=== PATIENT | female | born 1985 | race American Indian/Alaskan Native ===

== ENCOUNTER 2017-01-26 07:34 | Inpatient (IN) | payer OTHER ==
[2017-01-26] MEDS ORDERED: Methylergonovine 0.2 MG/1 ML Amp IM PRN (08:25)
[2017-01-26] MEDS ORDERED: Misoprostol 200 MCG Tab PO PRN (08:25)
[2017-01-26] MEDS ORDERED: Sodium Chloride 0.9% 2.5 ML Syringe FLUSH PRN (08:25)
[2017-01-26] MEDS ORDERED: Sodium Chloride 0.9% 10 ML Syringe FLUSH PRN (08:25)
[2017-01-26] MEDS ORDERED: Nalbuphine 10 MG/1 ML Vial IVPUSH PRN (08:25)
[2017-01-26] MEDS ORDERED: Lidocaine 1% 50 ML MDV INJECT PRN (08:25)
[2017-01-26] MEDS ORDERED: Butorphanol 1 MG/ML SDV IVPUSH PRN (08:25)
[2017-01-26] MEDS ORDERED: Water For Irrigation,Sterile 1,000 ML Container IRR PRN (08:25)
[2017-01-26] MEDS ORDERED: Carboprost Tromethamine 250 MCG/1 ML Amp IM PRN (08:25)
[2017-01-26] MEDS ORDERED: Ampicillin 2 GM in Sodium Chloride 0.9% 100 ML IV ONE (08:30)
[2017-01-26] MEDS ORDERED: Oxytocin/0.9 % Sodium Chloride 30 UNIT/500 ML BAG IV SCH ×2 (08:30→14:45)
[2017-01-26] MEDS: Lactated Ringers 1,000 ML IV SCH ×3 (08:50→12:11)
[2017-01-26] MEDS ORDERED: Ampicillin 2 GM AdvVial IV ONE (09:00)
[2017-01-26] MEDS ORDERED: Sodium Chloride 0.9% 100 ML ONE (09:06)
[2017-01-26] MEDS ORDERED: fentaNYL 100 MCG/2 ML SDV ONE (11:25)
[2017-01-26] MEDS ORDERED: Ropivacaine HCl/PF 100 ML ONE (11:26)
[2017-01-26] MEDS: Ampicillin 1 GM in Sodium Chloride 0.9% 50 ML IV SCH ×2 (13:09→18:50)
[2017-01-26] MEDS ORDERED: Terbutaline 1 MG/ML SDV SUBCUT PRN (14:40)
[2017-01-26] MEDS ORDERED: Lanolin 100% Cream 7 GM Tube TOP PRN (17:22)
[2017-01-26] MEDS ORDERED: Acetaminophen 500 MG Tab PO PRN ×3 (17:22→18:42)
[2017-01-26] MEDS ORDERED: oxyCODONE 5 MG Tab PO PRN (17:22)
[2017-01-26] MEDS ORDERED: Ibuprofen 400 MG Tab PO PRN (17:22)
[2017-01-26] MEDS ORDERED: Benzocaine/Menthol 20%-0.5% Spray 78 GM Cannister TOP PRN (17:22)
[2017-01-26] MEDS ORDERED: Docusate Sodium 100 MG Cap PO PRN (17:22)
[2017-01-26] MEDS ORDERED: Witch Hazel Medicated Pads 40/Jar TOP PRN (17:22)
[2017-01-26] MEDS ORDERED: Bisacodyl 10 MG Supp RECTAL PRN (17:22)
[2017-01-26] MEDS: Ibuprofen 800 MG Tab PO PRN (18:08)
--- NOTE | 2017-01-26 18:41 | PCM.PREANE ---
Preanesthetic Assessment - Procedure Proposed Procedure: labor epidural - Anesthesia/Transfusion/Family Hx Anesthesia History: Prior Anesthesia Without Reaction Family History of Anesthesia Reaction: No Transfusion History: No Prior Transfusion(s) - Review of Systems General: No Symptoms Pulmonary: No Symptoms Cardiovascular: No Symptoms Gastrointestinal: No Symptoms Neurological: No Symptoms Other: Reports: None - Physical Assessment NPO Status Date: 01/26/17 Height: 5 ft 10.87 in Weight: 244 lb 3.752 oz ASA Class: 2 Mental Status: Alert & Oriented x3 Dentition: Reports: Normal Dentition ROM/Head Extension: Full Lungs: Clear to Auscultation Cardiovascular: Regular Rate - Lab Values: Laboratory Last Values WBC 11.55 K/uL (4.0-11.0) H 01/26/17 08:53 RBC 3.94 M/uL (4.30-5.90) L 01/26/17 08:53 Hgb 12.9 g/dL (12.0-16.0) 01/26/17 08:53 Hct 38.6 % (36.0-46.0) 01/26/17 08:53 MCV 98.0 fL (80.0-98.0) 01/26/17 08:53 MCH 32.7 pg (27.0-32.0) H 01/26/17 08:53 MCHC 33.4 g/dL (31.0-37.0) 01/26/17 08:53 RDW Std Deviation 48.4 fl (28.0-62.0) 01/26/17 08:53 RDW Coeff of Mary 14 % (11.0-15.0) 01/26/17 08:53 Plt Count 279 K/uL (150-400) 01/26/17 08:53 MPV 9.30 fL (7.40-12.00) 01/26/17 08:53 Nucleated RBC % 0.0 /100WBC 01/26/17 08:53 Nucleated RBCs # 0 K/uL 01/26/17 08:53 Blood Type O POSITIVE 01/26/17 08:53 Antibody Screen NEGATIVE 01/26/17 08:53 - Allergies Allergies/Adverse Reactions: Allergies Allergy/AdvReac Type Severity Reaction Status Date / Time No Known Allergies Allergy Verified 09/15/15 07:05 - Blood Blood Available: No - Anesthesia Plan Free Text/Narrative:: labor epidural - Acknowledgements Anesthesia Type Planned: Epidural Pt an Appropriate Candidate for the Planned Anesthesia: Yes Alternatives and Risks of Anesthesia Discussed w Pt/Guardian: Yes Pt/Guardian Understands and Agrees with Anesthesia Plan: Yes PreAnesthesia Questionnaire - Past Health History Medical/Surgical History: Denies Medical/Surgical History 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 [No Known Home Meds] 09/15/15 [History] - CURRENT (IN HOUSE) MEDS Current Meds: Current Medications Acetaminophen (Tylenol Extra Strength) 500 mg PO Q4H PRN PRN Reason: Pain Acetaminophen (Tylenol Extra Strength) 1,000 mg PO Q4H PRN PRN Reason: Pain Benzocaine/Menthol (Dermoplast Pain Relief 20%-0.5% [place]) 78 gm TOP ASDIRECTED PRN PRN Reason: Perineal Comfort Measure Last Admin: 01/26/17 18:09 Dose: 1 canister Bisacodyl (Dulcolax) 10 mg RECTAL .ONCE PRN PRN Reason: Constipation Docusate Sodium (Colace) 100 mg PO BID PRN PRN Reason: Constipation Emollient Ointment (Lansinoh Hpa) 0 gm TOP ASDIRECTED PRN PRN Reason: Sore Nipples Last Admin: 01/26/17 18:09 Dose: 1 tube Ibuprofen (Motrin) 400 mg PO Q4H PRN PRN Reason: Pain Ibuprofen (Motrin) 800 mg PO Q6H PRN PRN Reason: Pain Last Admin: 01/26/17 18:08 Dose: 800 mg Oxycodone HCl (Oxycodone) 5 mg PO Q2H PRN PRN Reason: Pain Witch Sonja (Tucks) 1 pad TOP ASDIRECTED PRN PRN Reason: comfort care Last Admin: 01/26/17 18:09 Dose: 1 tub Discontinued Medications Ampicillin Sodium (Ampicillin) Confirm Administered Dose 4 gm IV .STK-MED ONE Stop: 01/26/17 09:01 Butorphanol Tartrate (Stadol) 1 mg IVPUSH Q1H PRN PRN Reason: Pain Carboprost Tromethamine (Hemabate Ds) 250 mcg IM ASDIRECTED PRN PRN Reason: Post Hemorrhage Fentanyl (Sublimaze) Confirm Administered Dose [address] [facility] ONE Stop: 01/26/17 11:26 Ampicillin Sodium 2 gm/ Sodium (Chloride) 100 mls @ 200 mls/hr IV ONETIME ONE Stop: 01/26/17 08:59 Last Admin: 01/26/17 09:11 Dose: 200 mls/hr Lactated Ringer's (Ringers, Lactated) 1,000 mls @ 150 mls/hr IV ASDIRECTED BARBI Last Admin: 01/26/17 12:11 Dose: 150 mls/hr Oxytocin/Sodium Chloride (Oxytocin 30 Unit/500 Ml-Ns) 30 unit in 500 mls @ 500 mls/hr IV TITRATE BARBI Sodium Chloride (Normal Saline) Confirm Administered Dose 100 mls @ as directed .ROUTE .[facility] ONE Stop: 01/26/17 09:07 Ampicillin Sodium 1 gm/ Sodium (Chloride) 50 mls @ 100 mls/hr IV Q4H BARBI Last Admin: 01/26/17 13:09 Dose: 100 mls/hr Ropivacaine (Naropin 0.2%) Confirm Administered Dose 100 mls @ as directed .ROUTE .[facility] ONE Stop: 01/26/17 11:27 Oxytocin/Sodium Chloride (Oxytocin 30 Unit/500 Ml-Ns) 30 unit in 500 mls @ 2 mls/hr IV TITRATE BARBI; 2 MUNITS/MIN PRN Reason: Protocol Last Titration: 01/26/17 17:04 Dose: 500 munits/min, 500 mls/hr Lidocaine HCl (Xylocaine 1%) 50 ml INJECT .ONCE PRN PRN Reason: Laceration repair Methylergonovine Maleate (Methergine) 0.2 mg IM ASDIRECTED PRN PRN Reason: Post Hemorrhage Misoprostol (Cytotec) 200 mcg PO .ONCE PRN PRN Reason: Post Hemorrhage Nalbuphine HCl (Nubain) 10 mg IVPUSH Q1H PRN PRN Reason: Pain (severe 7-10) Sodium Chloride (Saline Flush) 10 ml FLUSH ASDIRECTED PRN PRN Reason: Keep Vein Open Sodium Chloride (Saline Flush) 2.5 ml FLUSH ASDIRECTED PRN PRN Reason: Keep Vein Open Sterile Water (Sterile Water For Irrigation) 1,000 ml IRR ASDIRECTED PRN PRN Reason: delivery Terbutaline Sulfate (Brethine) 0.25 mg SUBCUT ASDIRECTED PRN PRN Reason: Tacysystole
--- NOTE | 2017-01-26 18:47 | PCM.SN ---
- Free Text/Narrative Note: Patient consents to labor epidural, risks and benefits explained, patient sitting, sterile technique, chlorhexidine prep L3-L4, 1% lidocaine skin wheal, 17 gauge Tuohy needle inserted to 10 cm with saline/loss of resistance technique , epidural catheter inserted to 14 cm at skin, needle discontinued, test dose given, no HR change, epidural bolus of 5 ml given, epidural drip started at 10 ml/hr, patient tolerated well, states pain is less.
--- NOTE | 2017-01-27 06:49 | PCM.PNPP ---
<Zacarias Chacon - Last Filed: 01/27/17 07:04> - General Info Date of Service: 01/27/17 Functional Status: Reports: Pain Controlled, Tolerating Diet, Ambulating, Urinating - Review of Systems General: Denies: Fever, Weakness HEENT: Denies: Headaches, Visual Changes Pulmonary: Denies: Shortness of Breath, Pleuritic Chest Pain, Cough Cardiovascular: Denies: Chest Pain, Palpitations Gastrointestinal: Reports: Flatus. Denies: Constipation, Nausea, Vomiting Genitourinary: Denies: Dysuria Neurological: Denies: Confusion, Dizziness, Headache Psychiatric: Denies: Confusion, Depression - Patient Data Vital Signs - Most Recent: Last Vital Signs Temp 98.9 F 01/26/17 20:00 Pulse 79 01/26/17 20:00 Resp 20 01/26/17 20:00 BP 112/66 01/26/17 20:00 Pulse Ox 97 01/26/17 20:00 Weight - Most Recent: 244 lb 3.752 oz Lab Results - Last 24 Hours: Laboratory Results - last 24 hr 01/26/17 01/26/17 01/27/17 Range/Units 08:53 08:53 04:57 WBC 11.55 H (4.0-11.0) K/uL RBC 3.94 L (4.30-5.90) M/uL Hgb 12.9 10.6 L (12.0-16.0) g/dL Hct 38.6 31.7 L (36.0-46.0) % MCV 98.0 (80.0-98.0) fL MCH 32.7 H (27.0-32.0) pg MCHC 33.4 (31.0-37.0) g/dL RDW Std Deviation 48.4 (28.0-62.0) fl RDW Coeff of Mary 14 (11.0-15.0) % Plt Count 279 (150-400) K/uL MPV 9.30 (7.40-12.00) fL Nucleated RBC % 0.0 /100WBC Nucleated RBCs # 0 K/uL Blood Type O POSITIVE Antibody Screen NEGATIVE Med Orders - Current: Current Medications Acetaminophen (Tylenol Extra Strength) 500 mg PO Q4H PRN PRN Reason: Pain Acetaminophen (Tylenol Extra Strength) 1,000 mg PO Q4H PRN PRN Reason: Pain Benzocaine/Menthol (Dermoplast Pain Relief 20%-0.5% [place]) 78 gm TOP ASDIRECTED PRN PRN Reason: Perineal Comfort Measure Last Admin: 01/26/17 18:09 Dose: 1 canister Bisacodyl (Dulcolax) 10 mg RECTAL .ONCE PRN PRN Reason: Constipation Docusate Sodium (Colace) 100 mg PO BID PRN PRN Reason: Constipation Emollient Ointment (Lansinoh Hpa) 0 gm TOP ASDIRECTED PRN PRN Reason: Sore Nipples Last Admin: 01/26/17 18:09 Dose: 1 tube Ibuprofen (Motrin) 400 mg PO Q4H PRN PRN Reason: Pain Ibuprofen (Motrin) 800 mg PO Q6H PRN PRN Reason: Pain Last Admin: 01/26/17 18:08 Dose: 800 mg Oxycodone HCl (Oxycodone) 5 mg PO Q2H PRN PRN Reason: Pain Witch Sonja (Tucks) 1 pad TOP ASDIRECTED PRN PRN Reason: comfort care Last Admin: 01/26/17 18:09 Dose: 1 tub Discontinued Medications Ampicillin Sodium (Ampicillin) Confirm Administered Dose 4 gm IV .STK-MED ONE Stop: 01/26/17 09:01 Butorphanol Tartrate (Stadol) 1 mg IVPUSH Q1H PRN PRN Reason: Pain Carboprost Tromethamine (Hemabate Ds) 250 mcg IM ASDIRECTED PRN PRN Reason: Post Hemorrhage Fentanyl (Sublimaze) Confirm Administered Dose 200 mcg .ROUTE .STK-MED ONE Stop: 01/26/17 11:26 Last Admin: 01/26/17 18:49 Dose: Not Given Ampicillin Sodium 2 gm/ Sodium (Chloride) 100 mls @ 200 mls/hr IV ONETIME ONE Stop: 01/26/17 08:59 Last Admin: 01/26/17 09:11 Dose: 200 mls/hr Lactated Ringer's (Ringers, Lactated) 1,000 mls @ 150 mls/hr IV ASDIRECTED BARBI Last Admin: 01/26/17 12:11 Dose: 150 mls/hr Oxytocin/Sodium Chloride (Oxytocin 30 Unit/500 Ml-Ns) 30 unit in 500 mls @ 500 mls/hr IV TITRATE BARBI Sodium Chloride (Normal Saline) Confirm Administered Dose 100 mls @ as directed .ROUTE .STK-MED ONE Stop: 01/26/17 09:07 Last Admin: 01/26/17 18:49 Dose: Not Given Ampicillin Sodium 1 gm/ Sodium (Chloride) 50 mls @ 100 mls/hr IV Q4H BARBI Last Admin: 01/26/17 18:50 Dose: Not Given Ropivacaine (Naropin 0.2%) Confirm Administered Dose 100 mls @ as directed .ROUTE .STK-MED ONE Stop: 01/26/17 11:27 Last Admin: 01/26/17 18:49 Dose: Not Given Oxytocin/Sodium Chloride (Oxytocin 30 Unit/500 Ml-Ns) 30 unit in 500 mls @ 2 mls/hr IV TITRATE BARBI; 2 MUNITS/MIN PRN Reason: Protocol Last Titration: 01/26/17 17:04 Dose: 500 munits/min, 500 mls/hr Lidocaine HCl (Xylocaine 1%) 50 ml INJECT .ONCE PRN PRN Reason: Laceration repair Methylergonovine Maleate (Methergine) 0.2 mg IM ASDIRECTED PRN PRN Reason: Post Hemorrhage Misoprostol (Cytotec) 200 mcg PO .ONCE PRN PRN Reason: Post Hemorrhage Nalbuphine HCl (Nubain) 10 mg IVPUSH Q1H PRN PRN Reason: Pain (severe 7-10) Sodium Chloride (Saline Flush) 10 ml FLUSH ASDIRECTED PRN PRN Reason: Keep Vein Open Sodium Chloride (Saline Flush) 2.5 ml FLUSH ASDIRECTED PRN PRN Reason: Keep Vein Open Sterile Water (Sterile Water For Irrigation) 1,000 ml IRR ASDIRECTED PRN PRN Reason: delivery Terbutaline Sulfate (Brethine) 0.25 mg SUBCUT ASDIRECTED PRN PRN Reason: Tacysystole - Infant Interaction Infant Disposition, : in Room with Family Infant Interaction: Holding Infant Infant Feeding: Breastfed ; Nursed Well Support Person: - Recovery Exam Fundal Tone: Firm Fundal Level: At Umbilicus Fundal Placement: Midline Lochia Amount: Small Lochia Color: Rubra/Red Episiotomy/Laceration: Approximated Bladder Status: Nonpalpable - Exam General: Alert, Oriented HEENT: Mucous Membr. Moist/[place] Neck: Trachea Midline Lungs: Clear to Auscultation, Normal Respiratory Effort Cardiovascular: Regular Rate, Regular Rhythm GI/Abdominal Exam: Normal Bowel Sounds, Soft Extremities: Normal Inspection, Normal Range of Motion, No Pedal Edema Skin: Warm, Dry, Intact Neurological: No New Focal Deficit Psy/Mental Status: Alert, Normal Affect, Normal Mood - Problem List & Annotations (1) Vaginal delivery SNOMED Code(s): 358454497 Code(s): O80 - ENCOUNTER FOR FULL-TERM UNCOMPLICATED DELIVERY Status: Acute Current Visit: Yes - Problem List Review Problem List Initiated/Reviewed/Updated: Yes - Assessment Assessment:: PPD #1 [id number] who is GBS pos, Rubella immune, and O pos type. Minimal pain and lochia. is going well. - Plan Plan:: Patient wishes to be discharged. Discharge instructions reviewed. Continue while breast feeding. Can use OTC ibuprofen/Tylenol as needed for pain. Instructed patient to call if she develops fever greater than 101 or bleeding through a large pad an hour. Educated on common emotional changes and when to let us know if symptoms seem to worsen. Counseled on conception and that they can become even while breast feeding and not having a period. F/U with [facility] in 6wk. <Jenae Kc - Last Filed: 01/27/17 13:10> - Patient Data Vital Signs - Most Recent: Last Vital Signs Temp 36.8 C 01/27/17 08:00 Pulse 82 01/27/17 08:00 Resp 16 01/27/17 08:00 BP 119/61 01/27/17 08:00 Pulse Ox 98 01/27/17 08:00 Lab Results - Last 24 Hours: Laboratory Results - last 24 hr 01/27/17 Range/Units 04:57 Hgb 10.6 L (12.0-16.0) g/dL Hct 31.7 L (36.0-46.0) % Med Orders - Current: Current Medications Acetaminophen (Tylenol Extra Strength) 500 mg PO Q4H PRN PRN Reason: Pain Acetaminophen (Tylenol Extra Strength) 1,000 mg PO Q4H PRN PRN Reason: Pain Benzocaine/Menthol (Dermoplast Pain Relief 20%-0.5% [place]) 78 gm TOP ASDIRECTED PRN PRN Reason: Perineal Comfort Measure Last Admin: 01/26/17 18:09 Dose: 1 canister Bisacodyl (Dulcolax) 10 mg RECTAL .ONCE PRN PRN Reason: Constipation Docusate Sodium (Colace) 100 mg PO BID PRN PRN Reason: Constipation Emollient Ointment (Lansinoh Hpa) 0 gm TOP ASDIRECTED PRN PRN Reason: Sore Nipples Last Admin: 01/26/17 18:09 Dose: 1 tube Ibuprofen (Motrin) 400 mg PO Q4H PRN PRN Reason: Pain Ibuprofen (Motrin) 800 mg PO Q6H PRN PRN Reason: Pain Last Admin: 01/26/17 18:08 Dose: 800 mg Oxycodone HCl (Oxycodone) 5 mg PO Q2H PRN PRN Reason: Pain Witch Sonja (Tucks) 1 pad TOP ASDIRECTED PRN PRN Reason: comfort care Last Admin: 01/26/17 18:09 Dose: 1 tub Discontinued Medications Ampicillin Sodium (Ampicillin) Confirm Administered Dose 4 gm IV .STK-MED ONE Stop: 01/26/17 09:01 Butorphanol Tartrate (Stadol) 1 mg IVPUSH Q1H PRN PRN Reason: Pain Carboprost Tromethamine (Hemabate Ds) 250 mcg IM ASDIRECTED PRN PRN Reason: Post Hemorrhage Fentanyl (Sublimaze) Confirm Administered Dose 200 mcg .ROUTE .STK-MED ONE Stop: 01/26/17 11:26 Last Admin: 01/26/17 18:49 Dose: Not Given Ampicillin Sodium 2 gm/ Sodium (Chloride) 100 mls @ 200 mls/hr IV ONETIME ONE Stop: 01/26/17 08:59 Last Admin: 01/26/17 09:11 Dose: 200 mls/hr Lactated Ringer's (Ringers, Lactated) 1,000 mls @ 150 mls/hr IV ASDIRECTED BARBI Last Admin: 01/26/17 12:11 Dose: 150 mls/hr Oxytocin/Sodium Chloride (Oxytocin 30 Unit/500 Ml-Ns) 30 unit in 500 mls @ 500 mls/hr IV TITRATE BARBI Sodium Chloride (Normal Saline) Confirm Administered Dose 100 mls @ as directed .ROUTE .STK-MED ONE Stop: 01/26/17 09:07 Last Admin: 01/26/17 18:49 Dose: Not Given Ampicillin Sodium 1 gm/ Sodium (Chloride) 50 mls @ 100 mls/hr IV Q4H BARBI Last Admin: 01/26/17 18:50 Dose: Not Given Ropivacaine (Naropin 0.2%) Confirm Administered Dose 100 mls @ as directed .ROUTE .STK-MED ONE Stop: 01/26/17 11:27 Last Admin: 01/26/17 18:49 Dose: Not Given Oxytocin/Sodium Chloride (Oxytocin 30 Unit/500 Ml-Ns) 30 unit in 500 mls @ 2 mls/hr IV TITRATE BARBI; 2 MUNITS/MIN PRN Reason: Protocol Last Titration: 01/26/17 17:04 Dose: 500 munits/min, 500 mls/hr Lidocaine HCl (Xylocaine 1%) 50 ml INJECT .ONCE PRN PRN Reason: Laceration repair Methylergonovine Maleate (Methergine) 0.2 mg IM ASDIRECTED PRN PRN Reason: Post Hemorrhage Misoprostol (Cytotec) 200 mcg PO .ONCE PRN PRN Reason: Post Hemorrhage Nalbuphine HCl (Nubain) 10 mg IVPUSH Q1H PRN PRN Reason: Pain (severe 7-10) Sodium Chloride (Saline Flush) 10 ml FLUSH ASDIRECTED PRN PRN Reason: Keep Vein Open Sodium Chloride (Saline Flush) 2.5 ml FLUSH ASDIRECTED PRN PRN Reason: Keep Vein Open Sterile Water (Sterile Water For Irrigation) 1,000 ml IRR ASDIRECTED PRN PRN Reason: delivery Terbutaline Sulfate (Brethine) 0.25 mg SUBCUT ASDIRECTED PRN PRN Reason: Tacysystole - Infant Interaction Support Person: , Significant Other - My Orders Last 24 Hours: My Active Orders 01/26/17 14:40 Bedrest Bathroom Privileges [RC] ASDIRECTED Communication Order [RC] ASDIRECTED Communication Order [RC] ASDIRECTED Oxygen Therapy [RC] ASDIRECTED Vaginal Exam [RC] PRN Vital Signs [RC] PER UNIT ROUTINE 01/26/17 17:22 Patient Status [ADT] Routine May Shower [RC] ASDIRECTED Up ad Marlene [RC] ASDIRECTED Vital Signs [RC] PER UNIT ROUTINE Acetaminophen [Tylenol Extra Strength] 1,000 mg PO Q4H PRN Acetaminophen [Tylenol Extra Strength] 500 mg PO Q4H PRN Benzocaine/Menthol [Dermoplast Pain Relief 20%-0.5% [place]] 78 gm TOP ASDIRECTED PRN Bisacodyl [Dulcolax] 10 mg RECTAL .ONCE PRN Docusate Sodium [Colace] 100 mg PO BID PRN Ibuprofen [Motrin] 400 mg PO Q4H PRN Ibuprofen [Motrin] 800 mg PO Q6H PRN Lanolin [Lansinoh HPA] See Dose Instructions TOP ASDIRECTED PRN Witch Sonja [Tucks] 1 pad TOP ASDIRECTED PRN oxyCODONE 5 mg PO Q2H PRN Assess Lochia [WOMSER] Per Unit Routine Assess Uterine Involution [WOMSER] Per Unit Routine Breast Pump [WOMSER] Per Unit Routine Peripheral IV Discontinue [OM.PC] Routine Resuscitation Status Routine 01/26/17 17:23 Perineal Care [OM.PC] Per Unit Routine 01/27/17 Breakfast Regular Diet [DIET] - Assessment Assessment:: I reviewed patient independently. She had a at 40.6 weks, stable and afebrile. She is clinically stable for discharge - Plan Plan:: Discharge instructions reviewed
--- NOTE | 2017-01-27 11:34 | OR ---
SURGEON: Jenae Kc MD DATE OF PROCEDURE: 01/26/2017 DELIVERY NOTE COLOR MAKER: Zacarias Chacon MS-IV. PREOPERATIVE DIAGNOSES: 1. Term at 40 weeks and 6 days. 2. Spontaneous labor. 3. Group B Streptococcus positive. POSTOPERATIVE DIAGNOSES: 1. Term at 40 weeks and 6 days. 2. Spontaneous labor. 3. Group B Streptococcus positive. 4. Delivered. ANESTHESIA: Epidural. ESTIMATED BLOOD LOSS: 150 mL. COMPLICATIONS: None. DISPOSITION: Mother and baby are stable in Labor and Delivery Room. FINDINGS: A female infant, weight 3860 g. score of 3 and 8 at 1 and 5 minutes respectively. Grossly normal placenta with three-vessel cord. Tight nuchal cord twice. Left labial laceration. BRIEF HISTORY: Brittney is a 31-year-old G2, P1, who was admitted in early hours of this morning at 40 weeks and 6 days with a history of regular contractions since about midnight. She denied vaginal bleeding, denied leakage of fluid, and reported active fetus. was uncomplicated. GBS positive. On admission at about 0700 this morning, she was found to be 4 cm dilated, 100% effaced, and station -2. Intact membranes. She was admitted, and antibiotics were started for GBS prophylaxis. Artificial rupture of membranes was performed, after she had received two doses of antibiotics, and after several hours of no significant cervical change, augmentation with oxytocin was commenced. She progressed to full dilatation and commenced active pushing. Maximum dose of Pitocin was 4mu/min. heart tracing had a baseline of 120s to 130s with intermittent prolonged variable decelerations. she pushed quite well, bringing the baby's head down to a +5 station, and she was set up for delivery in modified dorsolithotomy position. PROCEDURE IN DETAIL: She had a spontaneous vaginal delivery of a live female in direct occipital anterior position. With restitution, tight nuchal cord was noted which was not reducible. I went ahead and delivered the shoulders, the anterior and posterior shoulders were delivered without difficulty. After delivery of the shoulders, I was then able to reduce the cord which was worn the baby's neck tightly twice. The rest of the baby was delivered without difficulty. The baby was floppy at delivery. The cord was quickly doubly clamped and cut, and the infant was taken over to the waiting nursery staff. Dr. Wallace, the shipping team leader on-call, was present at delivery. Cord blood and gas samples were obtained. With delivery of the infant, oxytocin infusion, post- titration was commenced for active management of third stage of labor. The placenta was delivered by controlled cord traction and appeared to be complete and intact. Uterine massage was performed. The uterus was found to be well contracted below the umbilicus. Examination of the perineum revealed a right labial laceration extending up to the clitoral marroquin. This was repaired with 3-0 Vicryl suture in a continuous non-locking stitch. Repair was hemostatic. Uterine massage was performed and uterus was found to be well contracted and below the umbilicus. The patient tolerated the procedure well. COUNT RESULTS: Sponge, instrument, and needle counts were complete at the delivery. HITESH / ZEFERINO /[id number] ANTONIO
[2017-01-27] MEDS: Ibuprofen 800 MG Tab PO PRN (17:53)
[2017-01-27 21:58] VITALS: BP 121/62
== END 2017-01-27 21:25 | disposition home or self-care (01) | DRG 775 ==
LOC: MW.OBCHECK 07:34 → MW.OB 07:35 → MW.OBCHECK 08:31 → OBSVTOIN 17:02
PROVIDERS: ADMIT Obstetrics & Gynecology; ATTEND Obstetrics & Gynecology
PROC: 10E0XZZ Delivery of Products of Conception, External Approach (ICD-10-PCS; principal; 2017-01-26)
PROC: 10907ZC Drainage of Amniotic Fluid, Therapeutic from Products of Conception, Via Natural or Artificial Opening (ICD-10-PCS; 2017-01-26)
PROC: 0HQ9XZZ Repair Perineum Skin, External Approach (ICD-10-PCS; 2017-01-26)
DX: O70.0 First degree perineal laceration during delivery (principal); O69.1XX0 Labor and delivery complicated by cord around neck, with compression, not applicable or unspecified; O99.824 Streptococcus B carrier state complicating childbirth; O48.0 Post-term pregnancy; Z3A.40 40 weeks gestation of pregnancy; Z37.0 Single live birth
CPT/HCPCS: 36415; 59025; 59409; 85014; 85018; 85027; 86850; 86900; 86901; 88307; A9270-GY; J0290; J2590; J2795; J3010; J7030; J7050; J7120

== ENCOUNTER 2017-09-08 07:37 | Emergency (ER) | payer OTHER ==
[2017-09-08] MEDS ORDERED: Sodium Chloride 0.9% 10 ML Syringe FLUSH PRN (07:45)
[2017-09-08] MEDS ORDERED: Sodium Chloride 0.9% 2.5 ML Syringe FLUSH PRN (07:45)
--- NOTE | 2017-09-08 07:56 | EDM.PDOC ---
ED HPI GENERAL MEDICAL PROBLEM - General Chief Complaint: Cardiovascular Problem Stated Complaint: CHEST PAINS Time Seen by Provider: 09/08/17 07:53 - History of Present Illness INITIAL COMMENTS - FREE TEXT/NARRATIVE: HISTORY AND PHYSICAL: History of present illness: Patient is a 32-year-old white female who states she has a history of mild thyroid disease and presents with a concern of chest discomfort and palpitation she's had similar episodes in the past including with her recent she has not seen cardiology for this but her physician is aware and is treating her accordingly there's been no diaphoresis nausea vomiting or other complaints. Review of systems: As per history of present illness and below otherwise all systems reviewed and negative. Past medical history: As per history of present illness and as reviewed below otherwise noncontributory. Surgical history: As per history of present illness and as reviewed below otherwise noncontributory. Social history: No reported history of drug or alcohol abuse. Family history: As per history of present illness and as reviewed below otherwise noncontributory. Physical exam: HEENT: Atraumatic, normocephalic, pupils reactive, negative for conjunctival pallor or scleral icterus, mucous membranes moist, throat clear, neck supple, nontender, trachea midline. Lungs: Clear to auscultation, breath sounds equal bilaterally, chest nontender. Heart: S1S2, regular, negative for clicks, rubs, or JVD. Abdomen: Soft, nondistended, nontender. Negative for masses or hepatosplenomegaly. Negative for costovertebral tenderness. Pelvis: Stable nontender. Genitourinary: Deferred. Rectal: Deferred. Extremities: Atraumatic, negative for cords or calf pain. Neurovascular unremarkable. Neuro: Awake, alert, oriented. Cranial nerves II through XII unremarkable. Cerebellum unremarkable. Motor and sensory unremarkable throughout. Exam nonfocal. Diagnostics: CBC CMP troponin PT/INR chest x-ray d-dimer TSH Therapeutics: IV O2 monitor Impression: #1 palpitations #2 atypical chest pain Definitive disposition and diagnosis as appropriate pending reevaluation and review of above. 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 ED EXAM, GENERAL - Physical Exam Exam: See Below (See dictation) Course - Vital Signs Last Recorded V/S: Last Vital Signs Temp 35.9 C 09/08/17 07:48 Pulse 103 H 09/08/17 08:58 Resp 18 09/08/17 08:58 BP 180/95 H 09/08/17 08:58 Pulse Ox 98 09/08/17 08:58 - Orders/Labs/Meds Orders: Active Orders 24 hr Category Date Time Status Cardiac Monitoring [RC] . DIRECTED Care 09/08/17 07:45 Active EKG Documentation Completion [RC] STAT Care 09/08/17 07:45 Active HCG QUALITATIVE,URINE [URCHEM] Stat Lab 09/08/17 07:58 Ordered UA W/MICROSCOPIC [URIN] Stat Lab 09/08/17 07:58 Ordered Sodium Chloride 0.9% [Saline Flush] Med 09/08/17 07:45 Active 10 ml FLUSH ASDIRECTED PRN Sodium Chloride 0.9% [Saline Flush] Med 09/08/17 07:45 Active 2.5 ml FLUSH ASDIRECTED PRN Saline Lock Insert [OM.PC] Stat Oth 09/08/17 07:45 Ordered Medication Orders Sodium Chloride (Saline Flush) 10 ml FLUSH ASDIRECTED PRN PRN Reason: Keep Vein Open Last Admin: 09/08/17 08:18 Dose: 10 ml Sodium Chloride (Saline Flush) 2.5 ml FLUSH ASDIRECTED PRN PRN Reason: Keep Vein Open Last Admin: 09/08/17 08:18 Dose: 2.5 ml Labs: Laboratory Tests 09/08/17 09/08/17 09/08/17 Range/Units 07:50 07:50 07:50 WBC 7.24 (4.0-11.0) K/uL RBC 4.55 (4.30-5.90) M/uL Hgb 14.9 (12.0-16.0) g/dL Hct 42.3 (36.0-46.0) % MCV 93.0 (80.0-98.0) fL MCH 32.7 H (27.0-32.0) pg MCHC 35.2 (31.0-37.0) g/dL RDW Std Deviation 43.5 (28.0-62.0) fl RDW Coeff of Mary 13 (11.0-15.0) % Plt Count 276 (150-400) K/uL MPV 9.50 (7.40-12.00) fL Neut % (Auto) 67.6 (48.0-80.0) % Lymph % (Auto) 26.4 (16.0-40.0) % [place] % (Auto) 5.0 (0.0-15.0) % Eos % (Auto) 0.7 (0.0-7.0) % Baso % (Auto) 0.3 (0.0-1.5) % Neut # (Auto) 4.9 (1.4-5.7) K/uL Lymph # (Auto) 1.9 (0.6-2.4) K/uL [place] # (Auto) 0.4 (0.0-0.8) K/uL Eos # (Auto) 0.1 (0.0-0.7) K/uL Baso # (Auto) 0.0 (0.0-0.1) K/uL Nucleated RBC % 0.0 /100WBC Nucleated RBCs # 0 K/uL INR D-Dimer, Quantitative 0.19 (0.0-0.52) mg/LFEU Sodium 141 (136-145) mmol/L Potassium 3.4 L (3.5-5.1) mmol/L Chloride 103 (98-107) mmol/L Carbon Dioxide 24.6 (21.0-32.0) mmol/L BUN 14 (7.0-18.0) mg/dL Creatinine 1.0 (0.6-1.0) mg/dL Est Cr Clr Drug Dosing 85.72 mL/min Estimated GFR (MDRD) > 60.0 ml/min Glucose 90 (74-106) mg/dL Calcium 9.3 (8.5-10.1) mg/dL Total Bilirubin 0.6 (0.2-1.0) mg/dL AST 21 (15-37) IU/L ALT 25 (14-63) IU/L Alkaline Phosphatase 105 (46-116) U/L Troponin I < 0.050 (0.000-0.056) ng/mL Total Protein 7.8 (6.4-8.2) g/dL Albumin 4.2 (3.4-5.0) g/dL Globulin 3.6 H (2.0-3.5) g/dL Albumin/Globulin Ratio 1.2 L (1.3-2.8) TSH 3rd Generation (0.36-3.74) uIU/mL Urine Color Urine Appearance Urine pH (5.0-8.0) Ur Specific Hamel (1.001-1.035) Urine Protein (NEGATIVE) mg/dL Urine Glucose (UA) (NEGATIVE) mg/dL Urine Ketones (NEGATIVE) mg/dL Urine Occult Blood (NEGATIVE) Urine Nitrite (NEGATIVE) Urine Bilirubin (NEGATIVE) Urine Ictotest Urine Urobilinogen (<2.0) EU/dL Ur Leukocyte Esterase (NEGATIVE) Urine RBC (0-2/HPF) Urine WBC (0-5/HPF) Ur Epithelial Cells (NONE-FEW) Amorphous Sediment (NEGATIVE) Urine Bacteria (NEGATIVE) Urine HCG, Qual (NEGATIVE) 09/08/17 09/08/17 09/08/17 Range/Units 07:50 07:50 07:58 WBC (4.0-11.0) K/uL RBC (4.30-5.90) M/uL Hgb (12.0-16.0) g/dL Hct (36.0-46.0) % MCV (80.0-98.0) fL MCH (27.0-32.0) pg MCHC (31.0-37.0) g/dL RDW Std Deviation (28.0-62.0) fl RDW Coeff of Mary (11.0-15.0) % Plt Count (150-400) K/uL MPV (7.40-12.00) fL Neut % (Auto) (48.0-80.0) % Lymph % (Auto) (16.0-40.0) % [place] % (Auto) (0.0-15.0) % Eos % (Auto) (0.0-7.0) % Baso % (Auto) (0.0-1.5) % Neut # (Auto) (1.4-5.7) K/uL Lymph # (Auto) (0.6-2.4) K/uL [place] # (Auto) (0.0-0.8) K/uL Eos # (Auto) (0.0-0.7) K/uL Baso # (Auto) (0.0-0.1) K/uL Nucleated RBC % /100WBC Nucleated RBCs # K/uL INR 1.07 D-Dimer, Quantitative (0.0-0.52) mg/LFEU Sodium (136-145) mmol/L Potassium (3.5-5.1) mmol/L Chloride (98-107) mmol/L Carbon Dioxide (21.0-32.0) mmol/L BUN (7.0-18.0) mg/dL Creatinine (0.6-1.0) mg/dL Est Cr Clr Drug Dosing mL/min Estimated GFR (MDRD) ml/min Glucose (74-106) mg/dL Calcium (8.5-10.1) mg/dL Total Bilirubin (0.2-1.0) mg/dL AST (15-37) IU/L ALT (14-63) IU/L Alkaline Phosphatase (46-116) U/L Troponin I (0.000-0.056) ng/mL Total Protein (6.4-8.2) g/dL Albumin (3.4-5.0) g/dL Globulin (2.0-3.5) g/dL Albumin/Globulin Ratio (1.3-2.8) TSH 3rd Generation 1.87 (0.36-3.74) uIU/mL Urine Color DARK YELLOW Urine Appearance SLT CLOUDY Urine pH 6.0 (5.0-8.0) Ur Specific Hamel 1.025 (1.001-1.035) Urine Protein TRACE (NEGATIVE) mg/dL Urine Glucose (UA) NEGATIVE (NEGATIVE) mg/dL Urine Ketones >=80 (NEGATIVE) mg/dL Urine Occult Blood NEGATIVE (NEGATIVE) Urine Nitrite NEGATIVE (NEGATIVE) Urine Bilirubin MODERATE H (NEGATIVE) Urine Ictotest NEGATIVE Urine Urobilinogen 0.2 (<2.0) EU/dL Ur Leukocyte Esterase NEGATIVE (NEGATIVE) Urine RBC 0-1 (0-2/HPF) Urine WBC 1-3 (0-5/HPF) Ur Epithelial Cells [place] (NONE-FEW) Amorphous Sediment FEW (NEGATIVE) Urine Bacteria FEW (NEGATIVE) Urine HCG, Qual (NEGATIVE) 09/08/17 Range/Units 07:58 WBC (4.0-11.0) K/uL RBC (4.30-5.90) M/uL Hgb (12.0-16.0) g/dL Hct (36.0-46.0) % MCV (80.0-98.0) fL MCH (27.0-32.0) pg MCHC (31.0-37.0) g/dL RDW Std Deviation (28.0-62.0) fl RDW Coeff of Mary (11.0-15.0) % Plt Count (150-400) K/uL MPV (7.40-12.00) fL Neut % (Auto) (48.0-80.0) % Lymph % (Auto) (16.0-40.0) % [place] % (Auto) (0.0-15.0) % Eos % (Auto) (0.0-7.0) % Baso % (Auto) (0.0-1.5) % Neut # (Auto) (1.4-5.7) K/uL Lymph # (Auto) (0.6-2.4) K/uL [place] # (Auto) (0.0-0.8) K/uL Eos # (Auto) (0.0-0.7) K/uL Baso # (Auto) (0.0-0.1) K/uL Nucleated RBC % /100WBC Nucleated RBCs # K/uL INR D-Dimer, Quantitative (0.0-0.52) mg/LFEU Sodium (136-145) mmol/L Potassium (3.5-5.1) mmol/L Chloride (98-107) mmol/L Carbon Dioxide (21.0-32.0) mmol/L BUN (7.0-18.0) mg/dL Creatinine (0.6-1.0) mg/dL Est Cr Clr Drug Dosing mL/min Estimated GFR (MDRD) ml/min Glucose (74-106) mg/dL Calcium (8.5-10.1) mg/dL Total Bilirubin (0.2-1.0) mg/dL AST (15-37) IU/L ALT (14-63) IU/L Alkaline Phosphatase (46-116) U/L Troponin I (0.000-0.056) ng/mL Total Protein (6.4-8.2) g/dL Albumin (3.4-5.0) g/dL Globulin (2.0-3.5) g/dL Albumin/Globulin Ratio (1.3-2.8) TSH 3rd Generation (0.36-3.74) uIU/mL Urine Color Urine Appearance Urine pH (5.0-8.0) Ur Specific [place] (1.001-1.035) Urine Protein (NEGATIVE) mg/dL Urine Glucose (UA) (NEGATIVE) mg/dL Urine Ketones (NEGATIVE) mg/dL Urine Occult Blood (NEGATIVE) Urine Nitrite (NEGATIVE) Urine Bilirubin (NEGATIVE) Urine Ictotest Urine Urobilinogen (<2.0) EU/dL Ur Leukocyte Esterase (NEGATIVE) Urine RBC (0-2/HPF) Urine WBC (0-5/HPF) Ur Epithelial Cells (NONE-FEW) Amorphous Sediment (NEGATIVE) Urine Bacteria (NEGATIVE) Urine HCG, Qual NEGATIVE (NEGATIVE) Meds: Medications Generic Name Dose Route Start Last Admin Trade Name Freq PRN Reason Stop Dose Admin Sodium Chloride 10 ml 09/08/17 07:45 09/08/17 08:18 Saline Flush FLUSH 10 ml ASDIRECTED PRN Administration Keep Vein Open Sodium Chloride 2.5 ml 09/08/17 07:45 09/08/17 08:18 Saline Flush FLUSH 2.5 ml ASDIRECTED PRN Administration Keep Vein Open Discontinued Medications Generic Name Dose Route Start Last Admin Trade Name Freq PRN Reason Stop Dose Admin Lorazepam 1 mg 09/08/17 08:06 09/08/17 08:15 Ativan IVPUSH 09/08/17 08:07 1 mg ONETIME ONE Administration Departure - Departure Time of Disposition: 09:29 Disposition: Home, Self-Care 01 Condition: Good Clinical Impression: Palpitations, Atypical chest pain Forms: ED Department Discharge Additional Instructions: The following information is given to patients seen in the emergency department who are being discharged to home. This information is to outline your options for follow-up care. We provide all patients seen in our emergency department with a follow-up referral. The need for follow-up, as well as the timing and circumstances, are variable depending upon the specifics of your emergency department visit. If you don't have a primary care physician on staff, we will provide you with a referral. We always advise you to contact your personal physician following an emergency department visit to inform them of the circumstance of the visit and for follow-up with them and/or the need for any referrals to a consulting specialist. The emergency department will also refer you to a specialist when appropriate. This referral assures that you have the opportunity for followup care with a specialist. All of these measure are taken in an effort to provide you with optimal care, which includes your followup. Under all circumstances we always encourage you to contact your private physician who remains a resource for coordinating your care. When calling for followup care, please make the office aware that this follow-up is from your recent emergency room visit. If for any reason you are refused follow-up, please contact the [facility] emergency department at and asked to speak to the emergency department charge nurse. Current medications follow primary medical doctor call to schedule routine appointment return as needed as discussed[] - My Orders Last 24 Hours: My Active Orders 09/08/17 07:45 Cardiac Monitoring [RC] . DIRECTED EKG Documentation Completion [RC] STAT Sodium Chloride 0.9% [Saline Flush] 10 ml FLUSH ASDIRECTED PRN Sodium Chloride 0.9% [Saline Flush] 2.5 ml FLUSH ASDIRECTED PRN Saline Lock Insert [OM.PC] Stat 09/08/17 07:58 HCG QUALITATIVE,URINE [URCHEM] Stat UA W/MICROSCOPIC [URIN] Stat - Assessment/Plan Last 24 Hours: My Active Orders 09/08/17 07:45 Cardiac Monitoring [RC] . DIRECTED EKG Documentation Completion [RC] STAT Sodium Chloride 0.9% [Saline Flush] 10 ml FLUSH ASDIRECTED PRN Sodium Chloride 0.9% [Saline Flush] 2.5 ml FLUSH ASDIRECTED PRN Saline Lock Insert [OM.PC] Stat 09/08/17 07:58 HCG QUALITATIVE,URINE [URCHEM] Stat UA W/MICROSCOPIC [URIN] Stat
[2017-09-08] MEDS ORDERED: LORazepam 2 MG/ML SDV IVPUSH ONE (08:06)
[2017-09-08 08:31] LABS: CHLORIDE,CL 103 mmol/L (98-107); SODIUM,NA 141 mmol/L (136-145)
--- NOTE | 2017-09-08 09:00 | CR ---
EXAMINATION: Portable chest radiograph. HISTORY: Chest pain. FINDINGS: The trachea is midline. The cardiomediastinal silhouette is within normal limits. No pulmonary infilt rates, effusions or pneumothorax. Osseous structures appear unremarkable. IMPRESSION: No acute cardiopulmonary process.
[2017-09-08 09:47] VITALS: BP 157/93
== END 2017-09-08 09:56 | disposition home or self-care (01) ==
LOC: MW.ED 07:37
DX: R07.89 Other chest pain (principal); R00.2 Palpitations; Z79.899 Other long term (current) drug therapy
CPT/HCPCS: 36415; 71045; 80053; 81001; 81025; 84443; 84484; 85025; 85379; 85610; 93005; 96374; 99285; J2060

== ENCOUNTER 2017-09-23 19:47 | Emergency (ER) | payer OTHER ==
[2017-09-23] MEDS ORDERED: LORazepam 0.5 MG Tab PO ONE ×2 (20:00→21:04)
--- NOTE | 2017-09-23 20:04 | EDM.PDOC ---
ED HPI GENERAL MEDICAL PROBLEM - General Chief Complaint: Cardiovascular Problem Stated Complaint: HEART IS BEATING FAST Time Seen by Provider: 09/23/17 19:50 Source of Information: Reports: Patient, Family History Limitations: Reports: No Limitations - History of Present Illness INITIAL COMMENTS - FREE TEXT/NARRATIVE: HISTORY AND PHYSICAL: History of present illness: [Comes to the emergency room with a sensation of her heart pounding. She has been following regularly with a nurse practitioner for this complaint at the [facility]. She has been seen once in the ER for similar complaints with a normal workup. Her provider prescribed metoprolol 25 mg every morning with an evening dose available depending on her blood pressure. This evening she checked her pressure and got a reading of 146/101. She felt very concerned about his blood pressure reading and felt it was much too high. After checking her blood pressure she felt a pounding sensation in her heart area and felt a warmness in both arms and a cold sensation to her hands. She questions if she is having a panic attack or anxiety as a result of her blood pressure. Her prescriber also gave her some lorazepam. She has taken 2 of these tablets over the past 3 weeks. They have helped her feel calm and rid of the pounding sensation. She did not take any of his medications this evening. She has been diagnosed with depression and has been prescribed sertraline which she's been taking daily. She started this medication 2-3 weeks ago. She is 8 months . Denies fever and chills. She's otherwise been feeling well now recent hospitalizations or infections. Denies respiratory complaints. Has not had any chest pain, denies shortness of breath and difficulty breathing. Her appetite has been normal. No abdominal pain nausea or vomiting. She is having normal urination and bowel movements. She denies suicidal thoughts. 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 Past medical history: As per history of present illness and as reviewed below otherwise noncontributory. Surgical history: As per history of present illness and as reviewed below otherwise noncontributory. Social history: No reported history of drug or alcohol abuse. Family history: As per history of present illness and as reviewed below otherwise noncontributory. Physical exam: HEENT: Atraumatic, normocephalic. Oral mucous membranes moist, throat clear. neck supple, nontender, thyromegaly or lymphadenopathy. Lungs: Clear to auscultation, breath sounds equal bilaterally. Heart: S1S2, regular, negative for clicks, rubs, or JVD. Rate 85 and rhythm is regular. Abdomen: Soft, nondistended, nontender. Negative for masses, guarding and rebound. Pelvis: Stable nontender. Genitourinary: Deferred. Rectal: Deferred. Extremities: Atraumatic, negative for cyanosis and swelling. Neurovascular unremarkable. Neuro: Awake, alert, oriented. Motor and sensory unremarkable throughout. Exam nonfocal. Psych: Patient makes somewhat good eye contact. speech is mildly pressured and she appears anxious. She prefers to pace around the examination room rather than lay on the bed. Is alert and oriented answers questions appropriately. Diagnostics: [TSH, EKG] Therapeutics: [lorazepam 0.5 mg orally x2] Impression: [anxiety ] Plan: [EKG shows normal sinus rhythm with a rate of 87. TSH is 2.56. Discussed w/ patient that her BP is now WNL. Discussed that her heart pounding sensation is likely due to her anxiety. Recommend 1/2 tablet of lorazepam prn as discussed. Continue metoprolol as prescribed. Will discharge patient since she is clinically stable. She is in agreement w/ today's discussion and plan. ] Definitive disposition and diagnosis as appropriate pending reevaluation and review of above. no pain Pain Score (Numeric/FACES): 0 - Related Data Allergies Allergy/AdvReac Type Severity Reaction Status Date / Time No Known Allergies Allergy Verified 09/23/17 19:57 Home Meds: Home Meds Metoprolol Succinate [Toprol XL] 25 mg PO DAILY 09/08/17 [History] LORazepam 0.5 mg PO PRN 09/23/17 [History] Sertraline [Zoloft] 50 mg PO ASDIRECTED 09/23/17 [History] Past Medical History - Past Health History Medical/Surgical History: Denies Medical/Surgical History HEENT History: Reports: None Cardiovascular History: Reports: None Respiratory History: Reports: None Gastrointestinal History: Reports: None Genitourinary History: Reports: None MEDICAL CSR History: Reports: Musculoskeletal History: Reports: None Neurological History: Reports: None Psychiatric History: Reports: None Endocrine/Metabolic History: Reports: Hyperthyroidism Hematologic History: Reports: None Immunologic History: Reports: None Oncologic (Cancer) History: Reports: None Dermatologic History: Reports: None - Past Surgical History Head Surgeries/Procedures: Reports: None HEENT Surgical History: Reports: None Cardiovascular Surgical History: Reports: None Respiratory Surgical History: Reports: None GI Surgical History: Reports: None Female Surgical History: Reports: None Endocrine Surgical History: Reports: None Neurological Surgical History: Reports: None Musculoskeletal Surgical History: Reports: None Oncologic Surgical History: Reports: None Dermatological Surgical History: Reports: None Social & Family History - Family History Family Medical History: Noncontributory - Caffeine Use Caffeine Use: Reports: Soda ED ROS GENERAL - Review of Systems Review Of Systems: ROS reveals no pertinent complaints other than HPI. ED EXAM, GENERAL - Physical Exam Exam: See Below Course - Vital Signs Last Recorded V/S: Last Vital Signs Temp 97.6 F 09/23/17 19:57 Pulse 80 09/23/17 20:32 Resp 18 09/23/17 20:32 BP 132/92 H 09/23/17 20:32 Pulse Ox 99 09/23/17 20:32 - Orders/Labs/Meds Orders: Active Orders 24 hr Category Date Time Status EKG 12 Lead [EKG Documentation Completion] [RC] STAT Care 09/23/17 20:00 Active Labs: Laboratory Tests 09/23/17 Range/Units 20:18 TSH 3rd Generation 2.56 (0.36-3.74) uIU/mL Meds: Medications Discontinued Medications Generic Name Dose Route Start Last Admin Trade Name Ripq PRN Reason Stop Dose Admin Lorazepam 0.5 mg 09/23/17 20:00 09/23/17 20:06 Ativan PO 09/23/17 20:01 0.5 mg ONETIME ONE Administration Lorazepam 0.5 mg 09/23/17 21:04 09/23/17 21:14 Ativan PO 09/23/17 21:05 0.5 mg ONETIME ONE Administration Departure - Departure Time of Disposition: 22:00 Disposition: Home, Self-Care 01 Condition: Good Clinical Impression: Anxiety Referrals: PCP,None [Primary Care Provider] - Forms: ED Department Discharge Additional Instructions: The following information is given to patients seen in the emergency department who are being discharged to home. This information is to outline your options for follow-up care. We provide all patients seen in our emergency department with a follow-up referral. The need for follow-up, as well as the timing and circumstances, are variable depending upon the specifics of your emergency department visit. If you don't have a primary care physician on staff, we will provide you with a referral. We always advise you to contact your personal physician following an emergency department visit to inform them of the circumstance of the visit and for follow-up with them and/or the need for any referrals to a consulting specialist. The emergency department will also refer you to a specialist when appropriate. This referral assures that you have the opportunity for follow-up care with a specialist. All of these measure are taken in an effort to provide you with optimal care, which includes your follow-up. Under all circumstances we always encourage you to contact your private physician who remains a resource for coordinating your care. When calling for follow-up care, please make the office aware that this follow-up is from your recent emergency room visit. If for any reason you are refused follow-up, please contact the [facility] emergency department at and asked to speak to the emergency department charge nurse. [facility] [address] [place] [address] Follow-up with your primary care provider at the clinic listed above in 48-72 hours. Continue all medications as prescribed. Take metoprolol in the morning and in the evening as needed as prescribed. Take one half tablet of lorazepam as needed for feelings of anxiety. Return to ER as needed as discussed. - My Orders Last 24 Hours: My Active Orders 09/23/17 20:00 EKG 12 Lead [EKG Documentation Completion] [RC] STAT - Assessment/Plan Last 24 Hours: My Active Orders 09/23/17 20:00 EKG 12 Lead [EKG Documentation Completion] [RC] STAT
[2017-09-23 22:07] VITALS: BP 123/83
== END 2017-09-23 22:13 | disposition home or self-care (01) ==
LOC: MW.ED 19:47
DX: F41.9 Anxiety disorder, unspecified (principal); Z79.899 Other long term (current) drug therapy
CPT/HCPCS: 36415; 84443; 93005; 99285; A9270; 99284

== ENCOUNTER 2020-01-29 05:26 | Emergency (ER) | payer OTHER ==
[2020-01-29] MEDS ORDERED: Cephalexin 500 MG Cap PO ONE (05:38)
[2020-01-29 05:39] VITALS: BP 151/93; PULSE 108
--- NOTE | 2020-01-29 05:41 | EDM.PDOC ---
ED HPI GENERAL MEDICAL PROBLEM - General Chief Complaint: General Stated Complaint: LT SIDE OF FACE SWOLLEN Time Seen by Provider: 01/29/20 05:34 - History of Present Illness INITIAL COMMENTS - FREE TEXT/NARRATIVE: HISTORY AND PHYSICAL: History of present illness: Is a 34-year-old female who presents ER today secondary to pain and swelling to her right upper jaw. Patient reports that pain in her right upper molar started 2 days ago and swelling started yesterday. Patient reports that she took amoxicillin x2 days without any relief. Patient has an appointment to see her dentist in the morning. Patient has any recent fevers, shakes, chills, nausea, vomiting, diarrhea. Review of systems: As per history of present illness and below otherwise all systems reviewed and negative. Past medical history: As per history of present illness and as reviewed below otherwise noncontributory. Surgical history: As per history of present illness and as reviewed below otherwise noncontributory. Social history: No reported history of drug or alcohol abuse. Family history: As per history of present illness and as reviewed below otherwise noncontributory. Physical exam: Constitutional: Patient is oriented to person, place, and time. Appears well- developed and well-nourished. No distress. HEENT: Moist mucous membranes Head: Normocephalic and atraumatic Eyes: Right eye exhibits no discharge. Left eye exhibits no discharge. No scleral icterus Neck: Normal range of motion. No tracheal deviation present. Cardiovascular: Normal rate and regular rhythm. Pulmonary: Effort normal, no respiratory distress. Abdominal: No distention Musculoskeletal: Normal range of motion Neurologic: Alert and oriented to person, place and time. Skin: [place], warm and dry. Psychiatric: Normal mood and affect. Behavior is normal. Judgment and thought content normal. Nursing note and vital signs have been reviewed Patient's ER physical exam significant for tenderness to palpation and swelling to the gumline over her right upper premolars. Patient has no trismus. Assessment and plan: 34-year-old female who presents ER today secondary to likely dental abscess. Patient be started on Keflex and will be instructed to follow-up with her dentist as planned in the morning. Reassessment at the time of disposition demonstrates that the patient is in no acute distress. The patient has remained stable throughout the entire ED visit and is without objective evidence for acute process requiring urgent intervention or hospitalization. The patient is stable for discharge, counseling is provided as documented above, discussed symptomatic treatment and specific conditions for return. I have spoken with the patient/caregiver and discussed todays findings, in addition to providing specific details for the plan of care. Questions are answered and there is agreement with the plan. Definitive disposition and diagnosis as appropriate pending reevaluation and review of above. 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: Musculoskeletal History: Reports: None Neurological History: Reports: None Psychiatric History: Reports: None Other Psychiatric History: post depression Endocrine/Metabolic History: Reports: Hyperthyroidism Hematologic History: Reports: None Immunologic History: Reports: None Oncologic (Cancer) History: Reports: None Dermatologic History: Reports: None - Infectious Disease History Infectious Disease History: Reports: Chicken Pox - Past Surgical History Head Surgeries/Procedures: Reports: None HEENT Surgical History: Reports: None Cardiovascular Surgical History: Reports: None Respiratory Surgical History: Reports: None GI Surgical History: Reports: None Female Surgical History: Reports: None Endocrine Surgical History: Reports: None Neurological Surgical History: Reports: None Musculoskeletal Surgical History: Reports: None Oncologic Surgical History: Reports: None Dermatological Surgical History: Reports: None Social & Family History - Family History Family Medical History: Noncontributory - Caffeine Use Caffeine Use: Reports: Soda ED ROS GENERAL - Review of Systems Review Of Systems: See Below ED EXAM, GENERAL - Physical Exam Exam: See Below Departure - Departure Time of Disposition: 05:39 Disposition: Home, Self-Care 01 Clinical Impression: Dental abscess - Discharge Information Instructions: Dental Abscess Referrals: PCP,None [Primary Care Provider] - Additional Instructions: You have been given a prescription of Keflex 500 mg to take 3 times a day for 10 days Please keep your appointment as scheduled with your dentist in the morning The following information is given to patients seen in the emergency department who are being discharged to home. This information is to outline your options for follow-up care. We provide all patients seen in our emergency department with a follow-up referral. The need for follow-up, as well as the timing and circumstances, are variable depending upon the specifics of your emergency department visit. If you don't have a primary care physician on staff, we will provide you with a referral. We always advise you to contact your personal physician following an emergency department visit to inform them of the circumstance of the visit and for follow-up with them and/or the need for any referrals to a consulting specialist. The emergency department will also refer you to a specialist when appropriate. This referral assures that you have the opportunity for follow-up care with a specialist. All of these measure are taken in an effort to provide you with optimal care, which includes your follow-up. Under all circumstances we always encourage you to contact your private physician who remains a resource for coordinating your care. When calling for fo llow-up care, please make the office aware that this follow-up is from your recent emergency room visit. If for any reason you are refused follow-up, please contact the [facility] Emergency Department at and asked to speak to the emergency department charge nurse.
== END 2020-01-29 05:50 | disposition home or self-care (01) ==
LOC: MW.ED 05:26
DX: K04.7 Periapical abscess without sinus (principal)
CPT/HCPCS: 99282; A9270

== ENCOUNTER 2021-06-16 21:40 | Emergency (ER) | payer SELFPAY ==
[2021-06-16] MEDS: Acetaminophen 500 MG Tab PO ONE (22:38)
[2021-06-16] MEDS: Ibuprofen 600 MG Tab PO ONE (22:39)
[2021-06-16] MEDS: Cyclobenzaprine 10 MG Tab PO ONE (22:39)
[2021-06-16 23:54] VITALS: BP 137/76; PULSE 79
== END 2021-06-17 00:01 | disposition home or self-care (01) ==
LOC: MW.ED 21:40
DX: M62.838 Other muscle spasm (principal); E03.9 Hypothyroidism, unspecified; Z79.899 Other long term (current) drug therapy
CPT/HCPCS: 73590; 99283; A9270; 99282